=== PATIENT | male | born 1960 | race American Indian/Alaskan Native ===

== ENCOUNTER 2017-08-14 08:47 | Outpatient (CLI) | payer BC ==
--- NOTE | 2017-08-14 10:26 | XRay Report ---
XRAY RIGHT KNEE 4 THREE VIEWS: 08/14/17 CLINICAL: Right knee pain. FINDINGS: Mild narrowing of the medial joint space and normal lateral joint space. Patellofemoral osteophytes and joint space narrowing. A prominent quadriceps insertion enthesophyte.No joint effusion.A soft tissue mass in the medial popliteal space has predominant fat density on the lateral view. IMPRESSION: 1. Patellofemoral joint arthritis and quadriceps enthesopathy. 2. Mild medial joint space osteoarthritis. 3. A 4+ centimeter soft tissue mass of the popliteal space with predominant fat density. Consider ultrasound and/or MRI for further evaluation.
== END 2017-08-14 08:48 | disposition home or self-care (01) ==
LOC: SPVIMAG 08:47
PROVIDERS: ATTEND Orthopaedic Surgery
DX: M17.11 Unilateral primary osteoarthritis, right knee (principal)